=== PATIENT | male | born 1970 | race Hispanic/Latino ===

== ENCOUNTER 2020-12-26 23:07 | Emergency (ER) | payer OTHER ==
[2020-12-27] MEDS ORDERED: HYDROCODONE/ACETAMINOPHEN 10/325 MG TAB ONE (00:11)
== END 2020-12-27 00:33 | disposition home or self-care (01) ==
LOC: EDH 23:07 → EEVIPCON 23:07 → EDH 12-27 00:33
DX: S93.401A Sprain of unspecified ligament of right ankle, initial encounter (principal); X50.1XXA Overexertion from prolonged static or awkward postures, initial encounter; Y93.02 Activity, running; Y92.89 Other specified places as the place of occurrence of the external cause; Y99.8 Other external cause status
CPT/HCPCS: 73610